=== PATIENT | female | born 1955 | race Caucasian/White ===

== ENCOUNTER → 2017-04-18 | Outpatient (CLI) | payer BC ==
--- NOTE | ~2017-04-18 | US128 ---
[id number] [facility]. [facility] [address]. [place], [place] [address] [id number] O MR#: [id number] Acc #: [id number] NAME: RAYMUNDO CRUZ : 1955 SEX: F STUDY DATE/TIME: 04/18/2017 14:11 UNIT: [facility]US ROOM: STUDY DESCRIPTION: Thyroid Attending Physician: Oumar Nogueira M.D. Referring Physician: Oumar Nogueira M.D. Ordering Physician: Oumar Nogueira M.D. Primary Care Physician: Oumar Nogueira M.D. MEDICAL IMAGING REPORT This report is preliminary unless electronic signature is present EXAM Thyroid ultrasound. HISTORY Followup right thyroid nodule. COMPARISON Prior ultrasound 03/24/2016. FINDINGS There is a solid nodule at the lower pole of the right lobe of the gland, about 7 x 6 x 6 mm, unchanged since the prior study. No additional nodules are seen in the gland on either side. IMPRESSION Stable subcentimeter right lower pole thyroid nodule; no indication for tissue sampling at this time. Dictated by... Moreno Trivedi M.D. THIS IS AN ELECTRONICALLY VERIFIED REPORT Moreno Trivedi M.D. at 04/21/2017 2:07 PM JESSICA/ricki TD: 04/19/2017 15:26 JOB #: [id number] MEDICAL IMAGING REPORT Page 1 of 1 COPY
== END | disposition home or self-care (01) ==
LOC: CGUS 13:30
DX: E01.0 Iodine-deficiency related diffuse (endemic) goiter (principal); E04.1 Nontoxic single thyroid nodule
CPT/HCPCS: 76536